=== PATIENT | male | born 1990 | race Caucasian/White ===

== ENCOUNTER 2020-10-18 20:24 | Emergency (ER) | payer SELFPAY ==
[~2020-10-18] VITALS: Ht 180.3 cm; Wt 59.9 kg
[2020-10-18 20:38] VITALS: BP 129/92
--- NOTE | 2020-10-18 20:47 | NUR ---
[facility] AMB[facility]AT[facility] WITH PERSONAL CRUTCHES C/O BACK SPASMS X 2 DAYS. - TRAUMA. HX HERNIATED DISC. PT AOX4 RR EVEN AND UNLABORED. NO SOB NOTED. NO NVD AT THIS TIME. NO ACUTE DISTRESS NOTED.
[2020-10-18] MEDS ORDERED: DEXAMETHASONE SOD PHOSPHATE 10 MG/ML VIAL ONE (21:12)
[2020-10-18] MEDS ORDERED: KETOROLAC TROMETHAMINE INJ 30 MG/ML VIAL ONE (21:13)
[2020-10-18] MEDS ORDERED: DIAZEPAM 5 MG TABLET ONE (21:13)
[2020-10-18] MEDS ORDERED: DIAZEPAM 5 MG TABLET PO ONE (21:30)
[2020-10-18] MEDS ORDERED: KETOROLAC TROMETHAMINE INJ 60 MG/2 ML VIAL IM ONE (21:30)
[2020-10-18] MEDS ORDERED: DEXAMETHASONE SOD PHOSPHATE 4 MG/ML VIAL IM ONE (21:30)
== END 2020-10-18 22:18 | disposition home or self-care (01) ==
LOC: ER 20:24
DX: M62.830 Muscle spasm of back (principal); M54.41 Lumbago with sciatica, right side; Z60.2 Problems related to living alone
CPT/HCPCS: 96372 ×2; 99284; J1100; J1885